=== PATIENT | female | born 1960 | race Caucasian/White ===

== ENCOUNTER 2017-09-01 11:38 | Emergency (ER) | payer OTHER ==
[~2017-09-01] VITALS: Ht 157.5 cm; Wt 87.0 kg
[~2017-09-01 11:38] MED LIST: ALBU18HF INHALATION; AMLO5TAB4 PO; D-ME473S2 PO; ESOM40CA PO; HYDR25TA6 PO; LEVO750T25 PO; LORA10TA3 PO; METO-319 PO; NAPR-688 PO; PARO20TA58 PO; PRED20TA PO
[2017-09-01 11:49] VITALS: Ht 157.5 cm; Wt 87.0 kg
[2017-09-01] MEDS ORDERED: ONDANSETRON 4 MG INJ IV STA (12:54)
[2017-09-01] MEDS ORDERED: morphine 4 MG/ML VIAL IV STA (12:54)
[2017-09-01] MEDS ORDERED: SOD CHLORIDE 0.9% 1,000 ML IV STA (12:54)
[2017-09-01 13:25] LABS: BASOPHILS % 0.7 % (0.0-2.0); EOSINOPHILS # 0.2 10^3/ul (0.0-0.5); EOSINOPHILS % 3.3 % (0.0-7.0); HEMATOCRIT 44.2 % (37.0-47.0); HEMOGLOBIN 14.7 g/dl (12.0-16.0); LYMPHOCYTES # 1.7 10^3/ul (0.8-2.9); LYMPHOCYTES % 37.3 % (15.0-51.0); MEAN CORPUSCULAR HEMOGLOBIN 30.1 pg (29.0-33.0); MEAN CORPUSCULAR HGB CONC 33.3 g/dl (32.0-37.0); MEAN CORPUSCULAR VOLUME 90.4 fl (82.0-101.0); MEAN PLATELET VOLUME 10.1 fl (7.4-10.4); MONOCYTE # 0.9 10^3/ul (0.3-0.9); MONOCYTES % 20.1 % (0.0-11.0); NEUTROPHIL # 1.7 10^3/ul (1.6-7.5); NEUTROPHILS % 38.4 % (39.0-77.0); PLATELET COUNT 294 10^3/UL (140-415); RED BLOOD COUNT 4.89 10^6/ul (4.20-5.40); WHITE BLOOD COUNT 4.5 10^3/ul (4.8-10.8)
[2017-09-01 13:38] LABS: ADD UMIC YES; UR ASCORBIC ACID NEGATIVE (NEGATIVE); UR BACTERIA FEW /HPF (NONE SEEN); UR BILIRUBIN (Dip) NEGATIVE (NEGATIVE); UR BLOOD (Dip) NEGATIVE (NEGATIVE); UR CLARITY CLOUDY (CLEAR); UR COLOR YELLOW (YELLOW); UR GLUCOSE (Dip) NEGATIVE (NEGATIVE); UR KETONES (Dip) NEGATIVE (NEGATIVE); UR LEUKOCYTE ESTERASE (Dip) NEGATIVE Leu/ul (NEGATIVE); UR MUCUS FEW /HPF (NONE SEEN); UR NITRITE (Dip) NEGATIVE (NEGATIVE); UR RBC 0 /HPF (0-5); UR SPECIFIC GRAVITY (Dip) 1.014 (1.003-1.030); UR SQUAMOUS EPITHELIAL CELL FEW /HPF (FEW); UR TOTAL PROTEIN (Dip) NEGATIVE (NEGATIVE); UR UROBILINOGEN (Dip) NEGATIVE (NEGATIVE)
[2017-09-01 13:51] LABS: ALANINE AMINOTRANSFERASE 42 IU/L (13-69); ALBUMIN 4.5 g/dl (3.3-4.9); ALBUMIN/GLOBULIN RATIO 1.25; ALKALINE PHOSPHATASE 130 IU/L (42-121); ANION GAP 16 (8-16); ASPARTATE AMINO TRANSFERASE 47 IU/L (15-46); BILIRUBIN,INDIRECT 0.2 mg/dl (0-1.1); BILIRUBIN,TOTAL 0.2 mg/dl (0.2-1.3); BLOOD UREA NITROGEN 18 mg/dl (7-20); CALCIUM 9.2 mg/dl (8.4-10.2); CARBON DIOXIDE 29 mmol/L (21-31); CHLORIDE 93 mmol/L (97-110); CREATININE 1.21 mg/dl (0.44-1.00); GLUCOSE 101 mg/dl (70-220); POTASSIUM 4.1 mmol/L (3.5-5.1); SODIUM 134 mmol/L (135-144); TOTAL PROTEIN 8.1 g/dl (6.1-8.1)
[2017-09-01 14:00] LABS: TROPONIN-I < 0.012 ng/ml (0.00-0.12)
--- NOTE | 2017-09-01 14:10 | RADRPT ---
PROCEDURE: CT Abdomen and Pelvis without contrast. CLINICAL INDICATION: Abdominal pain TECHNIQUE: CT scan of the abdomen and pelvis was performed on a multidetector high-resolution CT s canner without intravenous contrast. Coronal and sagittal reformatted images were obtained from the axial source images. Images were reviewed on a high-resolution PACS workstation. The total exam CTD I equals 16mGy and the total exam DLP equals 860mGy-cm. One or more of the following dose reduction techniques were used: Automated exposure control, Adjustment of the mA and/or kV according to patien t size, and/or use of iterative reconstruction technique. DICOM images are available. COMPARISON: Correlation CTA chest angiogram 07/06/2017 FINDINGS: Evaluation of the solid organs is limited given the lack of intravenous contrast administration. Small to moderate hiatal hernia. Inferior right hepatic cyst, unchanged from prior. The pancreas, spleen, and adrenals are grossly unremarkable. Status post cholecystectomy. No hydronephrosis. No renal or ureteral stone. No bowel obstruction. Normal-caliber appendix. Colonic diverticulosis. No significant retroperitoneal lymphadenopathy, ascites or evidence of pneumoperitoneum. IMPRESSION: No renal or ureteral stone. No evidence of bowel obstruction or appendicitis. Colonic diverticulosis without evidence of acute diverticulitis. Status post cholecystectomy. Small to moderate hiatal hernia. RPTAT: AA .Christo Pardo MD, Date Time Electronically viewed and signed by .Christo Pardo MD, on 09/01/2017 14:09 .T/
--- NOTE | 2017-09-01 14:16 | RADRPT ---
PROCEDURE: XR Chest. CLINICAL INDICATION: Abdominal pain, cough TECHNIQUE: Single frontal view of the chest was obtained COMPARISON: None FINDINGS: The heart and mediastinum are within normal limits. The lungs are clear. There is a small to moderate hiatal hernia. There is no pleural effusion or pneumothorax. RPTAT: AA IMPRESSION: No acute disease. Small to moderate hiatal hernia. .Curtis Rodriguez MD, MD Date Time Electronically viewed and signed by .Curtis Rodriguez MD, on 09/01/2017 14:16 .S/
[2017-09-01] MEDS ORDERED: HYDR-902 PO (14:33)
[2017-09-01] MEDS ORDERED: ONDA4TAB14 PO (14:33)
--- NOTE | 2017-09-01 14:35 | ERD ---
ER Documentation Chief Complaint Chief Complaint ap with n/v, cough/congestion, fever x 1 week HPI Patient is a 57-year-old female with GERD, hernia, and hypertension who presents with chest pain and abdominal pain. She says that she is not better since she had pneumonia in June. She said that she has had fevers at home. She says "I cannot keep anything down". She says that she has had vomiting but no diarrhea. She is speaking in full sentences here in the emergency department. She has sick contacts at home. She tried stfr-snl-vqubotc medicines today. She did not call her primary doctor. Upon review of old medical records the patient one previous visit in July for pneumonia. ROS All systems reviewed and are negative except as per history of present illness. Medications Home Meds Active Scripts Ondansetron (Ondansetron Odt) 4 Mg Tab.rapdis, 4 MG PO Q6H Y for NAUSEA AND/OR VOMITING, #10 TAB Prov:LEROY RICKS MD 09/01/17 Hydrocodone/Acetaminophen ([place] 10-325 Tablet) 1 Each Tablet, 1 TAB PO Q6H Y for PAIN, #7 TAB Prov:LEROY RICKS MD 09/01/17 Reported Medications Dicyclomine Hcl* (Bentyl*) 10 Mg Capsule, 10 MG PO TID, CAP 09/01/17 Paroxetine Hcl* (Paxil*) 40 Mg Tablet, 40 MG PO DAILY, TAB 09/01/17 Metoprolol Succinate* (Toprol XL*) 100 Mg Tab.sr.24h, 100 MG PO DAILY, #30 TAB 09/01/17 Loratadine* (Loratadine*) 10 Mg Tablet, 10 MG PO QHS, #30 TAB 07/06/17 Amlodipine Besylate* (Norvasc*) 5 Mg Tablet, 5 MG PO DAILY, TAB 07/06/17 Albuterol Sulfate* (Ventolin HFA*) 18 Gm Hfa.aer.ad, 2 PUFF INHALATION Q6H Y for SHORTNESS OF BREATH, #1 INHALER 07/06/17 Discontinued Reported Medications Naproxen* (Naproxen*) 500 Mg Tablet, 500 MG PO BID, TAB 07/06/17 Hydrochlorothiazide* (Hydrochlorothiazide*) 25 Mg Tab, 25 MG PO DAILY, #30 TAB 07/06/17 Esomeprazole Mag Trihydrate (Nexium) 40 Mg Capsule.dr, 40 MG PO DAILY, #30 CAP 07/06/17 Metoprolol Succinate* (Toprol XL*) 50 Mg Tab.er.24h, 50 MG PO DAILY, #30 TAB 07/06/17 Paroxetine Hcl* (Paxil*) 20 Mg Tablet, 20 MG PO HS, TAB 07/06/17 Dextromethorphan Hb-Promethazine Hcl* (Promethazine DM* Syrup) 473 Ml Syrup, 5 ML PO Q6 Y for COUGH, ML 07/06/17 Discontinued Scripts Prednisone* (Prednisone*) 20 Mg Tab, 40 MG PO DAILY for 4 Days, TAB Prov:NADEGE MANCINI MD 07/06/17 Levofloxacin* (Levaquin*) 750 Mg Tablet, 750 MG PO DAILY for 5 Days, TAB Prov:NADEGE MANCINI MD 07/06/17 Allergies Allergies: Coded Allergies: No Known Allergy (Unverified , 09/01/17) PMhx/Soc History of Surgery: No Anesthesia Reaction: No Hx Neurological Disorder: No Hx Respiratory Disorders: Yes (PNUEMONIA ) Hx Cardiac Disorders: Yes (HYPERTENSION, HEART MURMUR ) Hx Psychiatric Problems: No Hx Miscellaneous Medical Probl: Yes (PERCITIS ) Hx Alcohol Use: Yes (SOCIALLY DRINK ) Hx Substance Use: No Hx Tobacco Use: No Smoking Status: Never smoker FmHx Family History: diabetes Physical Exam Vitals Vital Signs Date Time Temp Pulse Resp B/P Pulse Ox O2 Delivery O2 Flow Rate FiO2 09/01/17 14:45 98.6 71 18 142/86 97 Room Air 09/01/17 11:49 98.2 94 18 135/92 96 Physical Exam Const: No acute distress Head: Atraumatic Eyes: Normal Conjunctiva ENT: Normal External Ears, Nose and Mouth. Neck: Full range of motion..~ No meningismus. Resp: Clear to auscultation bilaterally Cardio: Regular rate and rhythm, no murmurs Abd: Soft, diffuse abdominal pain without rebound or guarding Skin: No petechiae or rashes Back: No midline or flank tenderness Ext: No cyanosis, or edema Neur: Awake and alert Psych: Normal Mood and Affect Result Diagram: 09/01/17 1254 09/01/17 1254 Results 24 hrs Laboratory Tests Test 09/01/17 12:54 09/01/17 13:00 White Blood Count 4.510^3/ul Red Blood Count 4.8910^6/ul Hemoglobin 14.7g/dl Hematocrit 44.2% Mean Corpuscular Volume 90.4fl Mean Corpuscular Hemoglobin 30.1pg Mean Corpuscular Hemoglobin Concent 33.3g/dl Red Cell Distribution Width 14.0% Platelet Count 39757^3/UL Mean Platelet Volume 10.1fl Neutrophils % 38.4% Lymphocytes % 37.3% Monocytes % 20.1% Eosinophils % 3.3% Basophils % 0.7% Nucleated Red Blood Cells % 0.0/100WBC Neutrophils # 1.710^3/ul Lymphocytes # 1.710^3/ul Monocytes # 0.910^3/ul Eosinophils # 0.210^3/ul Basophils # 0.010^3/ul Nucleated Red Blood Cells # 0.010^3/ul Sodium Level 134mmol/L Potassium Level 4.1mmol/L Chloride Level 93mmol/L Carbon Dioxide Level 29mmol/L Anion Gap 16 Blood Urea Nitrogen 18mg/dl Creatinine 1.21mg/dl Glucose Level 101mg/dl Calcium Level 9.2mg/dl Total Bilirubin 0.2mg/dl Direct Bilirubin 0.00mg/dl Indirect Bilirubin 0.2mg/dl Aspartate Amino Transf (AST/SGOT) 47IU/L Alanine Aminotransferase (ALT/SGPT) 42IU/L Alkaline Phosphatase 130IU/L Troponin I < 0.012ng/ml Total Protein 8.1g/dl Albumin 4.5g/dl Globulin 3.60g/dl Albumin/Globulin Ratio 1.25 Lipase 234U/L Urine Color YELLOW Urine Clarity CLOUDY Urine pH 5.0 Urine Specific [place] 1.014 Urine Ketones NEGATIVEmg/dL Urine Nitrite NEGATIVEmg/dL Urine Bilirubin NEGATIVEmg/dL Urine Urobilinogen NEGATIVEmg/dL Urine Leukocyte Esterase NEGATIVELeu/ul Urine Microscopic RBC 0/HPF Urine Microscopic WBC 3/HPF Urine Squamous Epithelial Cells FEW/HPF Urine Bacteria FEW/HPF Urine Mucus FEW/HPF Urine Hemoglobin NEGATIVEmg/dL Urine Glucose NEGATIVEmg/dL Urine Total Protein NEGATIVEmg/dl Current Medications Medications (Trade) Dose Ordered Sig/Isha Route PRN Reason Start Time Stop Time Status Last Admin Dose Admin Sodium Chloride (NS) 1,000 ml @ 1,000 mls/hr Q1H STAT IV 09/01/17 12:54 09/01/17 13:53 DC 09/01/17 13:39 Morphine Sulfate (morphine) 4 mg ONCE STAT IV 09/01/17 12:54 09/01/17 12:55 DC 09/01/17 13:39 Ondansetron HCl (Zofran Inj) 4 mg ONCE STAT IV 09/01/17 12:54 09/01/17 12:55 DC 09/01/17 13:39 Procedures/MDM EKG read by me: Rate/Rhythm: Regular rate and rhythm at a rate of 88 Intervals: Normal Impression: No evidence of ischemia or arrhythmia Chest x-ray negative for pneumonia per radiology. CT abdomen pelvis negative for surgical process per radiology. Patient is a 57-year-old female who presents with abdominal pain and chest pain. She had a full workup including laboratory studies, EKG, chest x-ray, and CT scan of the abdomen pelvis. The workup was basically negative and at this point I doubt acute coronary syndrome, pneumonia, pneumothorax, pulmonary embolism, or aortic dissection. I doubt serious intra-abdominal process such as appendicitis, cholecystitis, pancreatitis, or bowel obstruction. I believe outpatient management is appropriate. The patient will need to follow-up closely with her primary doctor within 24-48 hours. She can return sooner for any worsening symptoms. She will be given a short course of [place] and Zofran for symptomatically relief. She was given copies of her laboratory studies and imaging test results prior to discharge. Departure Diagnosis: Primary Impression: Chest pain Chest pain type: unspecified Qualified Code: R07.9 - Chest pain, unspecified type Additional Impression: Abdominal pain Abdominal location: generalized Qualified Code: R10.84 - Generalized abdominal pain Condition: Fair Patient Instructions: Abdominal Pain, Chest Pain, Uncertain Cause Additional Instructions: Call your primary care doctor TOMORROW for an appointment during the next 1-2 days.See the doctor sooner or return here if your condition worsens before your appointment time. LEROY RICKS MD Sep 01, 2017 14:35
[2017-09-01] MEDS ORDERED: METO-336 PO (14:40)
[2017-09-01] MEDS ORDERED: PARO40TA48 PO (14:41)
[2017-09-01] MEDS ORDERED: DICY10CA60 PO (14:42)
[2017-09-01 14:45] VITALS: BP 142/86; PULSE 71; RESP 18; TEMP 98.6
== END 2017-09-01 15:13 | disposition home or self-care (01) ==
LOC: E/R 11:38
DX: R07.9 Chest pain, unspecified (principal); R10.84 Generalized abdominal pain; I10 Essential (primary) hypertension; R11.2 Nausea with vomiting, unspecified
CPT/HCPCS: 36415; 71010; 74176; 80053; 81001; 83690; 84484; 85025; 87400; 93005; 96374; 96375; J2270; J2405; J7030; Z7502

== ENCOUNTER 2017-09-05 11:40 | Emergency (ER) | END 2017-09-05 14:20 | disposition home or self-care (01) ==

== ENCOUNTER 2017-10-14 12:21 | Emergency (ER) | END 2017-10-14 18:45 | disposition home or self-care (01) ==

== ENCOUNTER → 2018-07-25 | Outpatient (CLI) | END | disposition home or self-care (01) ==

== ENCOUNTER → 2018-10-18 | Outpatient (CLI) | payer OTHER ==
[~2018-10-18] MED LIST changes: +ANR PR; +CEPH-443 PO; -D-ME473S2 PO; +DICY10CA40 PO; -ESOM40CA PO; +FAMO-96 PO; +HYDR-3980 PO; -HYDR25TA6 PO; +IOHEXOL 100 ML ONE; -LEVO750T25 PO; -METO-319 PO; +METO-336 PO; +METO10TA92 PO; +METOPROLOL 5 MG INJ ONE; -NAPR-688 PO; +NITROGLYCERIN AEROSOL (4.9 GM) ONE; +ONDA4TAB14 PO; -PARO20TA58 PO; +PARO40TA63 PO; -PRED20TA PO; +SIME125T7 PO; +SOD CHLORIDE 0.9% 100 ML ONE
[2018-10-18] MEDS: METOPROLOL 5 MG INJ IV SCH ×4 (12:50→13:05)
--- NOTE | 2018-10-18 16:44 | NUR ---
CARDIAC CTA RECEIVED PT WITH HR OF [address] OLIVEIRA TO MEDICATE WITH METOPROLOL IVP 5MG Q 5 MINUTES TO MAXIMUM OF 70MG OR HR BELOW 60. DOSE GIVEN WAS METOPROLOL 70MG IVP, HR GOAL NOT OBTAINED PER DR OLIVEIRA OK TO SCAN PT WITH HR 65-72. PROCEDURE WELL TOLERATED PT DENIES ANY ADVERSE REACTION. SCAN DONE. PT D/C HOME.
== END | disposition home or self-care (01) ==
LOC: C/S 11:22
PROVIDERS: ATTEND Internal Medicine Interventional Cardiology
DX: R94.39 Abnormal result of other cardiovascular function study (principal); R07.9 Chest pain, unspecified
CPT/HCPCS: 75571; 75574; Q9967; Z7610